=== PATIENT | female | born 1965 | race Caucasian/White ===

== ENCOUNTER 2020-01-12 13:30 | Emergency (ER) | payer OTHER ==
[~2020-01-12] VITALS: Ht 172.7 cm; Wt 99.8 kg
[~2020-01-12 13:30] MED LIST: CIPRO500 MG PO; FLAGYL500 MG PO; ONDANSETRON HCL4 M2 PO; XANAX 0.5 MG0.5 MG PO
[2020-01-12 14:54] LABS: ABSOLUTE EOSINOPHILS 0.5 thou/uL (0.0-0.7); ABSOLUTE LYMPHOCYTES 2.4 thou/uL (0.8-5.3); ABSOLUTE MONOCYTES 0.7 thou/uL (0.0-1.2); ABSOLUTE NEUTROPHILS 5.6 thou/uL (1.6-8.1); BASOPHILS 0.2 %; EOSINOPHILS 5.5 %; HEMATOCRIT 36.3 % (37.0-47.0); HEMOGLOBIN 12.2 gm/dL (12.0-15.0); MCH 30.1 pg (26.0-34.0); MCHC 33.5 g/dL (28.0-37.0); MCV 89.8 fL (80.0-100.0); MONOCYTES 7.2 %; MPV 9.5 fl. (7.2-11.1); NUCLEATED RBCS 0 /100WBC; PLATELET COUNT* 260 thou/uL (150-400); POLYS 61.1 %; RBC 4.04 mil/uL (4.20-5.00); RDW-CV 14.3 % (10.5-14.5); WBC 9.2 thou/uL (4.0-11.0)
[2020-01-12 15:03] LABS: CALCIUM 8.4 mg/dL (8.5-10.1)
[2020-01-12 15:04] LABS: APTT 24.4 Seconds (25.0-31.3); PROTIME 10.1 Seconds (9.20-11.50)
[2020-01-12 15:14] LABS: ALBUMIN 3.6 g/dL (3.4-5.0); TOTAL BILIRUBIN 0.3 mg/dL (<0.1-1.0); TOTAL PROTEIN 7.7 g/dL (6.4-8.2)
[2020-01-12] MEDS ORDERED: PROMETH-CODEIN 65 ML PO (15:58)
[2020-01-12] MEDS ORDERED: ZPAK PO (15:58)
[2020-01-12] MEDS ORDERED: VENTOLIN HFA 1818 GM INH (15:58)
[2020-01-12 16:21] VITALS: BP 155/87
--- NOTE | 2020-01-13 14:00 | EKG ---
[place] [address] ELECTROCARDIOGRAM REPORT Name: GILMA VILLARREAL Room: [facility]#: [id number] Admission: 01/12/20 Attend Phys: Discharge: 01/12/20 Date of : 63 Date of Service: 01/12/20 1434 Report #: [id number] THIS REPORT FOR: //name// [facility] ED Test Date: 2020-01-12 Test Time: 14:34:28 Pat Name: GILMA VILLARREAL Department: Room: Gender: F [employer]: CCD : 1965 Requested By: Pita Hammond Order Number: [id number] MD: Hugo Snell Measurements Intervals [place] Rate: 73 P: 47 IL: 152 QRS: -15 QRSD: 95 T: 45 QT: 442 QTc: 488 Interpretive Statements Sinus rhythm Borderline left axis deviation Low voltage, extremity leads Cannot rule out inferior infarct, old Abnormal R-wave progression, late transition Borderline prolonged QT interval No previous ECG available for comparison Electronically Signed On 01-13-2020 14:00:03 CDT by Hugo Snell [email or web address] <ELECTRONICALLY SIGNED> By: Hugo Snell MD, FACC 01/13/20 1400 1434 1434 Hugo Snell MD, [facility] /EPI
== END 2020-01-12 16:22 | disposition home or self-care (01) ==
LOC: M.ERS 13:30
PROVIDERS: Nurse Practitioner Family
DX: J98.8 Other specified respiratory disorders (principal); R55 Syncope and collapse; E66.9 Obesity, unspecified; G43.909 Migraine, unspecified, not intractable, without status migrainosus; Z20.828 Contact with and (suspected) exposure to other viral communicable diseases; Z68.33 Body mass index [BMI] 33.0-33.9, adult; Z88.1 Allergy status to other antibiotic agents